=== PATIENT | male | born 1950 | race Caucasian/White ===

== ENCOUNTER 2017-07-01 08:00 | Inpatient (IN) | payer MEDICARE, BC ==
[~2017-07-01 08:00] MED LIST: ceFAZolin 2 GM in Premix Bag 1 BAG IV ONE
[2017-07-01] MEDS: Lactated Ringers 1,000 ML IV SCH ×2 (08:55→14:58)
--- NOTE | 2017-07-01 09:36 | PCM.PREANE ---
Preanesthetic Assessment - Anesthesia/Transfusion/Family Hx Anesthesia History: Prior Anesthesia Without Reaction Family History of Anesthesia Reaction: No Transfusion History: No Prior Transfusion(s) - Review of Systems General: No Symptoms Pulmonary: No Symptoms Cardiovascular: No Symptoms Gastrointestinal: No Symptoms Neurological: No Symptoms Other: Reports: None - Physical Assessment NPO Status Date: 06/30/17 NPO Status Time: 22:00 O2 Sat by Pulse Oximetry: 95 Respiratory Rate: 16 Vital Signs: Last Vital Signs Temp 37.3 C 07/01/17 08:50 Pulse 77 07/01/17 08:50 Resp 16 07/01/17 08:50 BP 150/72 H 07/01/17 08:50 Pulse Ox 95 07/01/17 08:50 Height: 1.75 m Weight: 105.233 kg ASA Class: 3 Mental Status: Alert & Oriented x3 Airway Class: Mallampati = 1 Dentition: Reports: Normal Dentition, Coleman(s) Lungs: Clear to Auscultation, Normal Respiratory Effort Cardiovascular: Regular Rate, Regular Rhythm - Lab Values: Laboratory Last Values WBC 9.14 K/uL (4.0-11.0) 07/01/17 09:14 RBC 4.91 M/uL (4.50-5.90) 07/01/17 09:14 Hgb 15.0 g/dL (13.0-17.0) 07/01/17 09:14 Hct 43.0 % (38.0-50.0) 07/01/17 09:14 MCV 87.6 fL (80.0-98.0) 07/01/17 09:14 MCH 30.5 pg (27.0-32.0) 07/01/17 09:14 MCHC 34.9 g/dL (31.0-37.0) 07/01/17 09:14 RDW Std Deviation 41.2 fl (28.0-62.0) 07/01/17 09:14 RDW Coeff of Mary Ann 13 % (11.0-15.0) 07/01/17 09:14 Plt Count 188 K/uL (150-400) 07/01/17 09:14 MPV 9.60 fL (7.40-12.00) 07/01/17 09:14 Neut % (Auto) 66.7 % (48.0-80.0) 07/01/17 09:14 Lymph % (Auto) 17.2 % (16.0-40.0) 07/01/17 09:14 [place] % (Auto) 9.1 % (0.0-15.0) 07/01/17 09:14 Eos % (Auto) 6.0 % (0.0-7.0) 07/01/17 09:14 Baso % (Auto) 1.0 % (0.0-1.5) 07/01/17 09:14 Neut # (Auto) 6.1 K/uL (1.4-5.7) H 07/01/17 09:14 Lymph # (Auto) 1.6 K/uL (0.6-2.4) 07/01/17 09:14 [place] # (Auto) 0.8 K/uL (0.0-0.8) 07/01/17 09:14 Eos # (Auto) 0.6 K/uL (0.0-0.7) 07/01/17 09:14 Baso # (Auto) 0.1 K/uL (0.0-0.1) 07/01/17 09:14 Nucleated RBC % 0.0 /100WBC 07/01/17 09:14 Nucleated RBCs # 0 K/uL 07/01/17 09:14 - Allergies Allergies/Adverse Reactions: Allergies Allergy/AdvReac Type Severity Reaction Status Date / Time No Known Allergies Allergy Verified 02/10/14 10:49 - Anesthesia Plan Pre-Op Medication Ordered: None - Acknowledgements Anesthesia Type Planned: General Anesthesia Pt an Appropriate Candidate for the Planned Anesthesia: Yes Alternatives and Risks of Anesthesia Discussed w Pt/Guardian: Yes Pt/Guardian Understands and Agrees with Anesthesia Plan: Yes Additional Comments: PMH: afib rate controlled, htn, RAD, GERD. HLD. PreAnesthesia Questionnaire Cardiovascular History: Reports: Afib, High Cholesterol, Hypertension Respiratory History: Reports: Asthma, Sleep Apnea Other Respiratory History: allergy induced asthma Gastrointestinal History: Reports: GERD Genitourinary History: Reports: BPH Endocrine/Metabolic History: Reports: Obesity/BMI 30+ Dermatologic History: Reports: Other (See Below) Other Dermatologic History: "small patchy spot on hoahaoism" - Past Surgical History Head Surgeries/Procedures: Reports: None GI Surgical History: Reports: Hernia, Abdominal Other GI Surgeries/Procedures: hx of anal fistula repair and hernia repair - SUBSTANCE USE Smoking Status *Q: Former Smoker Tobacco Use Within Last Twelve Months: No Second Hand Smoke Exposure: No Days Per Week of Alcohol Use: 0 Recreational Drug Use History: No - HOME MEDS Home Medications: Home Meds Diltiazem HCl [Diltiazem 24Hr ER] 240 mg PO DAILY 02/10/14 [History] Esomeprazole [NexIUM] 20 mg PO BID 02/10/14 [History] Multivitamin [Multi Vitamin Daily] 1 each PO DAILY 02/10/14 [History] Tamsulosin [Tamsulosin 24 Hr] 2 tab PO BEDTIME 02/10/14 [History] Valsartan [Diovan] 80 mg PO DAILY 02/10/14 [History] atorvaSTATin [Lipitor] 10 mg PO DAILY 02/10/14 [History] Albuterol Sulfate [Proair Hfa] 2 puff INH ASDIRECTED PRN 06/27/17 [History] Flecainide Acetate 100 mg PO BID 06/27/17 [History] Fluticasone Propionate [Flonase Allergy Relief] 2 spray NASBOTH DAILY 06/27/17 [ History] Rivaroxaban [Xarelto] 20 mg PO DAILY 06/27/17 [History] - CURRENT (IN HOUSE) MEDS Current Meds: Current Medications Lactated Ringer's (Ringers, Lactated) 1,000 mls @ 100 mls/hr IV ASDIRECTED [facility] Last Admin: 07/01/17 08:55 Dose: 100 mls/hr Discontinued Medications Cefazolin Sodium/Dextrose 2 gm (/ Premix) 50 mls @ 100 mls/hr IV ONCALL ONE Stop: 07/01/17 07:29
[2017-07-01 10:01] LABS: CHLORIDE,CL 106 mmol/L (98-110); SODIUM,NA 141 mmol/L (136-146)
[2017-07-01] MEDS ORDERED: Propofol 200 MG/20 ML SDV ONE ×4 (10:50→13:32)
[2017-07-01] MEDS ORDERED: fentaNYL 100 MCG/2 ML SDV ONE (10:50)
[2017-07-01] MEDS ORDERED: Midazolam 1 MG/ML 2 ML SDV ONE (10:50)
[2017-07-01] MEDS ORDERED: ePHEDrine 50 MG/ML SDV ONE (12:23)
--- NOTE | 2017-07-01 14:12 | PCM.POSTAN ---
POST ANESTHESIA ASSESSMENT - MENTAL STATUS Mental Status: Oriented - RESPIRATORY Respiratory Status: Respiratory Rate WNL, Airway Patent, O2 Saturation Stable - CARDIOVASCULAR CV Status: Pulse Rate WNL, Blood Pressure Stable - GASTROINTESTINAL GI Status: No Symptoms - PAIN Pain Score: 0 - POST OP HYDRATION Hydration Status: Adequate & Stable
[2017-07-01] MEDS ORDERED: ceFAZolin 1 GM in Premix Bag 1 BAG IV SCH (14:15)
[2017-07-01] MEDS: ceFAZolin 1 GM in Premix Bag 1 BAG IV SCH (20:16)
[2017-07-01] MEDS: Famotidine 20 MG Tab PO SCH (20:17)
--- NOTE | 2017-07-01 20:42 | OR ---
SURGEON: Adams Sorto M.D. DATE OF PROCEDURE: 07/01/2017 PREOPERATIVE DIAGNOSIS: Benign prostatic hypertrophy with obstruction. POSTOPERATIVE DIAGNOSIS: Benign prostatic hypertrophy with obstruction. OPERATION: TURP. DESCRIPTION: The patient was given spinal anesthesia, placed in dorsal lithotomy position, and prepped and draped in sterile drapes. The resectoscope was placed in the bladder that was [place]. Dissection was started with the median lobe which was resected first, then going both laterally and anteriorly. At the end of the resection, all prostatic chips were removed. Both ureteral orifices were intact. The area of the external sphincter was intact. A 22 3-way Grubbs catheter with 60 mL in the balloon was left in the bladder, connected to TUR drip. Estimated blood loss under 200 mL. The patient tolerated the procedure well and was moved to recovery room in good condition. AMARILIS / KIRT /[id number]
[2017-07-02] MEDS: Lactated Ringers 1,000 ML IV SCH (00:21)
[2017-07-02] MEDS: ceFAZolin 1 GM in Premix Bag 1 BAG IV SCH (03:35)
[2017-07-02 05:27] LABS: CHLORIDE,CL 105 mmol/L (98-110); SODIUM,NA 140 mmol/L (136-146)
[2017-07-02] MEDS: Famotidine 20 MG Tab PO SCH ×2 (09:59→20:14)
[2017-07-02] MEDS: Fluticasone Propionate Nasal Spray 16 GM Bottle NASBOTH SCH (10:00)
[2017-07-02] MEDS: Diltiazem 180 MG Cap.CD PO SCH (10:00)
[2017-07-02] MEDS ORDERED: Sodium Chloride 0.9% 10 ML Syringe FLUSH PRN (10:10)
[2017-07-02] MEDS ORDERED: Sodium Chloride 0.9% 2.5 ML Syringe FLUSH PRN (10:10)
--- NOTE | 2017-07-03 07:58 | PCM48HPAN ---
Post Anesthesia Note - EVALUATION WITHIN 48HRS OF ANESTHETIC Vital Signs in Normal Range: Yes Patient Participated in Evaluation: Yes Respiratory Function Stable: Yes Airway Patent: Yes Cardiovascular Function Stable: Yes Hydration Status Stable: Yes Pain Control Satisfactory: Yes Nausea and Vomiting Control Satisfactory: Yes Mental Status Recovered: Yes
[2017-07-03] MEDS: Fluticasone Propionate Nasal Spray 16 GM Bottle NASBOTH SCH (08:22)
[2017-07-03] MEDS: Famotidine 20 MG Tab PO SCH (08:23)
[2017-07-03] MEDS: Diltiazem 180 MG Cap.CD PO SCH (08:23)
[2017-07-03] MEDS ORDERED: Diltiazem 120 MG Cap.CD PO SCH (09:00)
[2017-07-03] MEDS ORDERED: Albuterol 8 GM Inhaler INH PRN (09:28)
[2017-07-03] MEDS ORDERED: Flecainide 100 MG Tab PO SCH (09:30)
[2017-07-03] MEDS ORDERED: Aspirin 81 MG Tab.Chew PO SCH (09:30)
[2017-07-03] MEDS ORDERED: Multivitamin Tab PO SCH (09:30)
[2017-07-03] MEDS ORDERED: atorvaSTATin 10 MG Tab PO SCH (09:30)
[2017-07-03] MEDS ORDERED: Omeprazole 20 MG Cap.CR PO SCH (09:30)
[2017-07-03] MEDS ORDERED: Fluticasone Propionate Nasal Spray 16 GM Bottle NASBOTH SCH (09:30)
--- NOTE | 2017-07-03 09:37 | PCM.SN ---
- Free Text/Narrative Note: 07/02 doing well . 07/03 doing well ,discharged
--- NOTE | 2017-07-04 04:52 | DISCH ---
DATE OF DISCHARGE: 07/03/2017 PRIMARY CARE PHYSICIAN: Kyung [facility] COURSE: A 66-year-old, he had a TURP done on the of this month, 2 days ago for BPH and obstructive urinary symptoms. Postoperatively, he did very well. The catheter was taken out on the 2nd postoperative day. He was able to void and is discharged on the 2nd postoperative day. Pathology of removed prostate tissue is still pending. He is instructed to go back on Xarelto in 3 days. He is to come back as needed. AMARILIS MORALEZ /[id number]
[2017-07-04] MEDS ORDERED: Diltiazem 120 MG Cap.CD PO SCH (09:00)
--- NOTE | 2017-11-26 11:31 | HP ---
DATE OF : 1950 PRIMARY CARE PHYSICIAN: Kyung Pal HISTORY OF PRESENT ILLNESS: He had his surgery done on 07/01/2017. The patient is 66 years old. He had obstructive urinary symptoms with at least one episode of urinary retention. His evaluation was done in the office, which included a prostate ultrasound that showed an adenoma that measured approximately 60 mL. PAST MEDICAL HISTORY: Includes 1. Dyslipidemia. 2. GERD. 3. Hypertension. 4. Palpitations. SURGICAL HISTORY: Includes 1. Repair of [id number]. 2. Hernia repair. FAMILY HISTORY: Hypertension and diabetes. REVIEW OF SYSTEMS: Essentially unremarkable, with the exception of his obstructive urinary symptoms. PHYSICAL EXAMINATION: GENERAL APPEARANCE: He is overweight. VITAL SIGNS: Blood pressure was 162/70. HEART: Shows atrial fibrillation. LUNGS: Clear. ABDOMEN: Obese, otherwise negative. GENITOURINARY: External genitalia were normal. RECTAL: Shows a benign enlarged prostate. DIAGNOSIS: Benign prostatic hypertrophy. PLAN: Transurethral resection of the prostate. AMARILIS MORALEZ /[id number]
== END 2017-07-03 10:50 | disposition home or self-care (01) | DRG 713 ==
LOC: MW.MS 08:30
PROVIDERS: ADMIT Urology; ATTEND Urology
PROC: 0VT08ZZ Resection of Prostate, Via Natural or Artificial Opening Endoscopic (ICD-10-PCS; principal; 2017-07-01)
DX: N40.1 Benign prostatic hyperplasia with lower urinary tract symptoms (principal); N13.8 Other obstructive and reflux uropathy; I48.91 Unspecified atrial fibrillation; I10 Essential (primary) hypertension; E78.00 Pure hypercholesterolemia, unspecified; Z79.899 Other long term (current) drug therapy
CPT/HCPCS: 00914; 36415; 80048; 80053; 85025; 88305; A9270-GY; C1769; J0690; J2250; J2704; J3010; J7120

== ENCOUNTER 2017-07-16 07:42 | Observation (INO) | payer MEDICARE, BC ==
--- NOTE | 2017-07-16 07:58 | EDM.PDOC ---
ED HPI GENERAL MEDICAL PROBLEM - General Chief Complaint: Genitourinary Problem Stated Complaint: UNABLE TO URINATE Time Seen by Provider: 07/16/17 07:48 Source of Information: Reports: Patient History Limitations: Reports: No Limitations - History of Present Illness INITIAL COMMENTS - FREE TEXT/NARRATIVE: History of present illness: []Patient is status post TURP on July 01 and this morning urinated a blood clot. He denies any pain in his abdomen or pain with urination, fevers, chills, nausea or vomiting. Patient started his overall toe 3 days after his TURP has not had a problem until today. Review of systems: As per history of present illness and below otherwise all systems reviewed and negative. Past medical history: As per history of present illness and as reviewed below otherwise noncontributory. Surgical history: As per history of present illness and as reviewed below otherwise noncontributory. Social history: No reported history of drug or alcohol abuse. Family history: As per history of present illness and as reviewed below otherwise noncontributory. Physical exam: General: Well developed, well nourished in NAD HEENT: Atraumatic, normocephalic, pupils reactive, negative for conjunctival pallor or scleral icterus, mucous membranes moist, throat clear, neck supple, nontender, trachea midline. Lungs: Clear to auscultation, breath sounds equal bilaterally, chest nontender. Heart: S1S2, regular, negative for clicks, rubs, or JVD. Abdomen: Soft, nondistended, nontender. Negative for masses or hepatosplenomegaly. Negative for costovertebral tenderness. Pelvis: Stable nontender. Genitourinary: Deferred. Rectal: Deferred. Extremities: Atraumatic, negative for cords or calf pain. Neurovascular unremarkable. Neuro: Awake, alert, oriented. Cranial nerves II through XII unremarkable. Cerebellum unremarkable. Motor and sensory unremarkable throughout. Exam nonfocal. Diagnostics: []Three-way Grubbs catheter was placed UA was sent showing no white cells but too numerous to count red cells. CBC shows H&H is stable Therapeutics: [] Impression: []Hematuria Plan: []Admit for continuous bladder irrigation Dr. Mora Definitive disposition and diagnosis as appropriate pending reevaluation and review of above. - Related Data Allergies Allergy/AdvReac Type Severity Reaction Status Date / Time No Known Allergies Allergy Verified 07/16/17 07:46 Home Meds: Home Meds Diltiazem HCl [Diltiazem 24Hr ER] 240 mg PO DAILY 02/10/14 [History] Esomeprazole [NexIUM] 20 mg PO BID 02/10/14 [History] Multivitamin [Multi Vitamin Daily] 1 each PO DAILY 02/10/14 [History] Valsartan [Diovan] 80 mg PO DAILY 02/10/14 [History] atorvaSTATin [Lipitor] 10 mg PO DAILY 02/10/14 [History] Albuterol Sulfate [Proair Hfa] 2 puff INH ASDIRECTED PRN 06/27/17 [History] Flecainide Acetate 100 mg PO BID 06/27/17 [History] Fluticasone Propionate [Flonase Allergy Relief] 2 spray NASBOTH DAILY 06/27/17 [ History] Rivaroxaban [Xarelto] 20 mg PO DAILY 06/27/17 [History] Doxycycline [Vibramycin] 100 mg PO BID 07/16/17 [History] Past Medical History Cardiovascular History: Reports: Afib, High Cholesterol, Hypertension Respiratory History: Reports: Asthma, Sleep Apnea Other Respiratory History: allergy induced asthma Gastrointestinal History: Reports: GERD Genitourinary History: Reports: BPH Psychiatric History: Reports: None Endocrine/Metabolic History: Reports: Obesity/BMI 30+ Dermatologic History: Reports: Other (See Below) Other Dermatologic History: "small patchy spot on adventism" - Past Surgical History Head Surgeries/Procedures: Reports: None GI Surgical History: Reports: Hernia, Abdominal Other GI Surgeries/Procedures: hx of anal fistula repair and hernia repair Male Surgical History: Reports: TURP-Transurethral Resection of Prostate Social & Family History - Tobacco Use Smoking Status *Q: Never Smoker Second Hand Smoke Exposure: No - Alcohol Use Days Per Week of Alcohol Use: 0 - Recreational Drug Use Recreational Drug Use: No ED ROS GENERAL - Review of Systems Review Of Systems: See Below (see history of present illness) ED EXAM, RENAL/ - Physical Exam Exam: See Below (See history of present illness) Course - Vital Signs Last Recorded V/S: Last Vital Signs Temp 36.9 C 07/16/17 11:26 Pulse 85 07/16/17 11:26 Resp 16 07/16/17 11:26 BP 142/78 H 07/16/17 11:26 Pulse Ox 94 L 07/16/17 11:26 - Orders/Labs/Meds Orders: Active Orders 24 hr Category Date Time Status Bladder Irrigation [RC] CONTINUOUS Care 07/16/17 08:39 Active Insert Grubbs Catheter [Insert Urinary Catheter] [OM.PC] Care 07/16/17 08:15 Ordered Q24H Urinary Catheter Assessment [RC] ASDIRECTED Care 07/16/17 08:09 Active Sodium Chloride 0.9% [Saline Flush] Med 07/16/17 08:37 Active 10 ml FLUSH ASDIRECTED PRN Sodium Chloride 0.9% [Saline Flush] Med 07/16/17 08:37 Active 2.5 ml FLUSH ASDIRECTED PRN Saline Lock Insert [OM.PC] Stat Oth 07/16/17 08:37 Ordered Medication Orders Albuterol (Ventolin Hfa) 8 gm INH ASDIRECTED PRN PRN Reason: Shortness of Breath Atorvastatin Calcium (Lipitor) 10 mg PO DAILY [facility] Diltiazem HCl (Cardizem Cd) 240 mg PO DAILY [facility] Flecainide Acetate (Tambocor) 100 mg PO BID [facility] Fluticasone Propionate (Flonase) 16 gm NASBOTH DAILY [facility] Multivitamins/Minerals/Vitamin C (Tab-A-Douglas) 1 tab PO DAILY [facility] Omeprazole (Omeprazole) 20 mg PO BIDAC REINALDO Sodium Chloride (Saline Flush) 10 ml FLUSH ASDIRECTED PRN PRN Reason: Keep Vein Open Last Admin: 07/16/17 09:50 Dose: 10 ml Sodium Chloride (Saline Flush) 2.5 ml FLUSH ASDIRECTED PRN PRN Reason: Keep Vein Open Last Admin: 07/16/17 09:50 Dose: 2.5 ml Valsartan (Diovan) 80 mg PO DAILY [facility]DO Labs: Laboratory Tests 07/16/17 07/16/17 07/16/17 Range/Units 08:54 08:54 08:54 WBC 14.62 H (4.0-11.0) K/uL RBC 5.07 (4.50-5.90) M/uL Hgb 15.5 (13.0-17.0) g/dL Hct 45.0 (38.0-50.0) % MCV 88.8 (80.0-98.0) fL MCH 30.6 (27.0-32.0) pg MCHC 34.4 (31.0-37.0) g/dL RDW Std Deviation 41.4 (28.0-62.0) fl RDW Coeff of Mary Ann 13 (11.0-15.0) % Plt Count 236 (150-400) K/uL MPV 9.40 (7.40-12.00) fL Add Manual Diff YES Neutrophils % (Manual) 76 (48.0-80.0) % Band Neutrophils % 7 % Lymphocytes % (Manual) 14 L (16.0-40.0) % Eosinophils % (Manual) 3 (0.0-7.0) % Nucleated RBC % 0.0 /100WBC Absolute Seg Neuts 11.1 H (1.4-5.7) Band Neutrophils # 1.0 Lymphocytes # (Manual) 2.0 (0.6-2.4) Eosinophils # (Manual) 0.4 (0.0-0.7) Nucleated RBCs # 0 K/uL Sodium 135 L (136-146) mmol/L Potassium 4.4 (3.5-5.1) mmol/L Chloride 100 (98-110) mmol/L Carbon Dioxide 27 (21-31) mmol/L BUN 16 (6.0-23.0) mg/dL Creatinine 0.9 (0.6-1.5) mg/dL Est Cr Clr Drug Dosing TNP Estimated GFR (MDRD) > 60.0 ml/min Glucose 117 H (60-110) mg/dL Calcium 9.2 (8.8-10.8) mg/dL Total Bilirubin 0.5 (0.1-1.5) mg/dL AST 19 (5-40) IU/L ALT 33 (8-54) IU/L Alkaline Phosphatase 105 (40-150) Total Protein 7.3 (6.0-8.0) g/dL Albumin 4.0 (3.4-4.8) g/dL Globulin 3.3 (2.0-3.5) g/dL Albumin/Globulin Ratio 1.2 L (1.3-2.8) Urine Color Urine Appearance Urine pH (5.0-8.0) Ur Specific [place] (1.001-1.035) Urine Protein (NEGATIVE) mg/dL Urine Glucose (UA) (NEGATIVE) mg/dL Urine Ketones (NEGATIVE) mg/dL Urine Occult Blood (NEGATIVE) Urine Nitrite (NEGATIVE) Urine Bilirubin (NEGATIVE) Urine Urobilinogen (<2.0) EU/dL Ur Leukocyte Esterase (NEGATIVE) Urine RBC (0-2/HPF) Urine WBC (0-5/HPF) Ur Epithelial Cells (NONE-FEW) Urine Bacteria (NEGATIVE) Blood Type A POSITIVE Antibody Screen NEGATIVE 07/16/17 Range/Units 08:54 WBC (4.0-11.0) K/uL RBC (4.50-5.90) M/uL Hgb (13.0-17.0) g/dL Hct (38.0-50.0) % MCV (80.0-98.0) fL MCH (27.0-32.0) pg MCHC (31.0-37.0) g/dL RDW Std Deviation (28.0-62.0) fl RDW Coeff of Mary Ann (11.0-15.0) % Plt Count (150-400) K/uL MPV (7.40-12.00) fL Add Manual Diff Neutrophils % (Manual) (48.0-80.0) % Band Neutrophils % % Lymphocytes % (Manual) (16.0-40.0) % Eosinophils % (Manual) (0.0-7.0) % Nucleated RBC % /100WBC Absolute Seg Neuts (1.4-5.7) Band Neutrophils # Lymphocytes # (Manual) (0.6-2.4) Eosinophils # (Manual) (0.0-0.7) Nucleated RBCs # K/uL Sodium (136-146) mmol/L Potassium (3.5-5.1) mmol/L Chloride (98-110) mmol/L Carbon Dioxide (21-31) mmol/L BUN (6.0-23.0) mg/dL Creatinine (0.6-1.5) mg/dL Est Cr Clr Drug Dosing Estimated GFR (MDRD) ml/min Glucose (60-110) mg/dL Calcium (8.8-10.8) mg/dL Total Bilirubin (0.1-1.5) mg/dL AST (5-40) IU/L ALT (8-54) IU/L Alkaline Phosphatase (40-150) Total Protein (6.0-8.0) g/dL Albumin (3.4-4.8) g/dL Globulin (2.0-3.5) g/dL Albumin/Globulin Ratio (1.3-2.8) Urine Color RED Urine Appearance CLOUDY Urine pH 8.0 (5.0-8.0) Ur Specific [place] 1.020 (1.001-1.035) Urine Protein >=300 (NEGATIVE) mg/dL Urine Glucose (UA) NEGATIVE (NEGATIVE) mg/dL Urine Ketones NEGATIVE (NEGATIVE) mg/dL Urine Occult Blood LARGE H (NEGATIVE) Urine Nitrite NEGATIVE (NEGATIVE) Urine Bilirubin NEGATIVE (NEGATIVE) Urine Urobilinogen 0.2 (<2.0) EU/dL Ur Leukocyte Esterase SMALL (NEGATIVE) Urine RBC TOO NUMBEROUS TO CT (0-2/HPF) Urine WBC 0-1 (0-5/HPF) Ur Epithelial Cells RARE (NONE-FEW) Urine Bacteria RARE (NEGATIVE) Blood Type Antibody Screen Meds: Medications Generic Name Dose Route Start Last Admin Trade Name Freq PRN Reason Stop Dose Admin Albuterol 8 gm 07/16/17 10:32 Ventolin Hfa INH ASDIRECTED PRN Shortness of Breath Atorvastatin Calcium 10 mg 07/17/17 09:00 Lipitor PO DAILY REINALDO Diltiazem HCl 240 mg 07/17/17 09:00 Cardizem Cd PO DAILY REINALDO Flecainide Acetate 100 mg 07/16/17 21:00 Tambocor PO BID REINALDO Fluticasone Propionate 16 gm 07/17/17 09:00 Flonase NASBOTH DAILY [facility] Multivitamins/Minerals/Vitamin C 1 tab 07/17/17 09:00 Tab-A-Douglas PO DAILY RE[facility]DO Omeprazole 20 mg 07/16/17 17:00 Omeprazole PO BIDAC REINALDO Sodium Chloride 10 ml 07/16/17 08:37 07/16/17 09:50 Saline Flush FLUSH 10 ml ASDIRECTED PRN Administration Keep Vein Open Sodium Chloride 2.5 ml 07/16/17 08:37 07/16/17 09:50 Saline Flush FLUSH 2.5 ml ASDIRECTED PRN Administration Keep Vein Open Valsartan 80 mg 07/17/17 09:00 Diovan PO DAILY REINALDO Departure - Departure Time of Disposition: 11:10 Disposition: Admitted As Inpatient 66 Condition: Good Clinical Impression: Hematuria Qualifiers: Hematuria type: gross Qualified Code(s): R31.0 - Gross hematuria - Discharge Information - My Orders Last 24 Hours: My Active Orders 07/16/17 08:09 Urinary Catheter Assessment [RC] ASDIRECTED 07/16/17 08:15 Insert Grubbs Catheter [Insert Urinary Catheter] [OM.PC] Q24H 07/16/17 08:37 Sodium Chloride 0.9% [Saline Flush] 10 ml FLUSH ASDIRECTED PRN Sodium Chloride 0.9% [Saline Flush] 2.5 ml FLUSH ASDIRECTED PRN Saline Lock Insert [OM.PC] Stat 07/16/17 08:39 Bladder Irrigation [RC] CONTINUOUS - Assessment/Plan Last 24 Hours: My Active Orders 07/16/17 08:09 Urinary Catheter Assessment [RC] ASDIRECTED 07/16/17 08:15 Insert Grubbs Catheter [Insert Urinary Catheter] [OM.PC] Q24H 07/16/17 08:37 Sodium Chloride 0.9% [Saline Flush] 10 ml FLUSH ASDIRECTED PRN Sodium Chloride 0.9% [Saline Flush] 2.5 ml FLUSH ASDIRECTED PRN Saline Lock Insert [OM.PC] Stat 07/16/17 08:39 Bladder Irrigation [RC] CONTINUOUS
[2017-07-16] MEDS ORDERED: Sodium Chloride 0.9% 2.5 ML Syringe FLUSH PRN (08:37)
[2017-07-16] MEDS ORDERED: Sodium Chloride 0.9% 10 ML Syringe FLUSH PRN (08:37)
[2017-07-16 09:24] LABS: CHLORIDE,CL 100 mmol/L (98-110); SODIUM,NA 135 mmol/L (136-146)
[2017-07-16] MEDS ORDERED: Albuterol 8 GM Inhaler INH PRN (10:32)
[2017-07-16] MEDS: Omeprazole 20 MG Cap.CR PO SCH (17:43)
[2017-07-16] MEDS: Flecainide 100 MG Tab PO SCH (20:53)
[2017-07-16] MEDS ORDERED: atorvaSTATin 10 MG Tab PO SCH (21:00)
[2017-07-17] MEDS: Omeprazole 20 MG Cap.CR PO SCH (06:42)
[2017-07-17] MEDS: Flecainide 100 MG Tab PO SCH (08:14)
[2017-07-17] MEDS ORDERED: atorvaSTATin 10 MG Tab PO SCH (09:00)
[2017-07-17] MEDS ORDERED: Fluticasone Propionate Nasal Spray 16 GM Bottle NASBOTH SCH (09:00)
[2017-07-17] MEDS ORDERED: Multivitamin Tab PO SCH (09:00)
[2017-07-17] MEDS ORDERED: Diltiazem 120 MG Cap.CD PO SCH (09:00)
--- NOTE | 2017-07-17 15:16 | DISCH ---
DATE OF DISCHARGE: 07/17/2017 PRIMARY CARE PHYSICIAN: Kyung Pal Scott was admitted to the hospital on 07/16/2017 with post TURP bleeding. A catheter was placed in his bladder. The continuous bladder irrigation was started and was kept for the better part of a day. The irrigation was discontinued. The color of the urine remained reasonably clear. He is discharged with a Grubbs catheter in and he was instructed to take the Grubbs catheter out in a couple days. He is to take baby aspirin 1 a day for a week. He is to restart his Xarelto about a week from now. He is to come back and see me as needed. AMARILIS MORALEZ /[id number] MTDD
== END 2017-07-17 15:20 | disposition home or self-care (01) ==
LOC: MW.ED 07:42 → MW.MS 10:18 → UNDOADMOB 10:58
PROVIDERS: ADMIT Urology; ATTEND Urology
DX: N99.820 Postprocedural hemorrhage of a genitourinary system organ or structure following a genitourinary system procedure (principal)
CPT/HCPCS: 36415; 80053; 81001; 85025; 86850; 86900; 86901; 87086; 99283; A9270; G0378; 99284

== ENCOUNTER 2017-07-19 09:39 | Emergency (ER) | payer MEDICARE, BC ==
[2017-07-19] MEDS ORDERED: Sodium Chloride 0.9% 1,000 ML IV ONE (10:40)
--- NOTE | 2017-07-19 10:41 | EDM.PDOC ---
ED HPI GENERAL MEDICAL PROBLEM - General Chief Complaint: Genitourinary Problem Stated Complaint: BLOODY URINE Time Seen by Provider: 07/19/17 10:10 Source of Information: Reports: Patient, Family History Limitations: Reports: No Limitations - History of Present Illness INITIAL COMMENTS - FREE TEXT/NARRATIVE: History of present illness: [66-year-old male presenting with complaints of blood in urine. Patient has a recent history of a TURP that he was discharged after 2 days and subsequent return with blood in his urine vomiting. Patient indicates he's concerned that this is not resolving and has come back for reevaluation today.] Review of systems: As per history of present illness and below otherwise all systems reviewed and negative. Past medical history: As per history of present illness and as reviewed below otherwise noncontributory. Surgical history: As per history of present illness and as reviewed below otherwise noncontributory. Social history: No reported history of drug or alcohol abuse. Family history: As per history of present illness and as reviewed below otherwise noncontributory. Physical exam: HEENT: Atraumatic, normocephalic, pupils reactive, negative for conjunctival pallor or scleral icterus, mucous membranes moist, throat clear, neck supple, nontender, trachea midline. Lungs: Clear to auscultation, breath sounds equal bilaterally, chest nontender. Heart: S1S2, regular, negative for clicks, rubs, or JVD. Abdomen: Soft, nondistended, nontender. Negative for masses or hepatosplenomegaly. Negative for costovertebral tenderness. Pelvis: Stable nontender. Genitourinary: Deferred. Rectal: Deferred. Extremities: Atraumatic, negative for cords or calf pain. Neurovascular unremarkable. Neuro: Awake, alert, oriented. Cranial nerves II through XII unremarkable. Cerebellum unremarkable. Motor and sensory unremarkable throughout. Exam nonfocal. Patient was given IV normal saline here and was able to void and was able to excrete greater than 90% of what was visualized on the bladder scan. UA sent no signs of infection signs of blood as would be expected. Discussed with patient the need for increased oral hydration and the minimum numbers that would keep her bleeding and blood clots under control. Diagnostics: [Bladder scan] Therapeutics: [1 L normal saline] Impression: [#1 dehydration] Plan: [Increase hydration and natural bladder irrigation] Definitive disposition and diagnosis as appropriate pending reevaluation and review of above. - Related Data Allergies Allergy/AdvReac Type Severity Reaction Status Date / Time No Known Allergies Allergy Verified 07/19/17 10:01 Home Meds: Home Meds Diltiazem HCl [Diltiazem 24Hr ER] 240 mg PO DAILY 02/10/14 [History] Esomeprazole [NexIUM] 20 mg PO BID 02/10/14 [History] Multivitamin [Multi Vitamin Daily] 1 each PO DAILY 02/10/14 [History] Valsartan [Diovan] 80 mg PO DAILY 02/10/14 [History] atorvaSTATin [Lipitor] 10 mg PO BEDTIME 02/10/14 [History] Albuterol Sulfate [Proair Hfa] 2 puff INH ASDIRECTED PRN 06/27/17 [History] Flecainide Acetate 100 mg PO BID 06/27/17 [History] Fluticasone Propionate [Flonase Allergy Relief] 2 spray NASBOTH DAILY 06/27/17 [ History] Rivaroxaban [Xarelto] 20 mg PO BEDTIME 06/27/17 [History] Doxycycline [Vibramycin] 100 mg PO BID 07/16/17 [History] Past Medical History HEENT History: Reports: Sinusitis Cardiovascular History: Reports: Afib, High Cholesterol, Hypertension Respiratory History: Reports: Asthma, Sleep Apnea Other Respiratory History: allergy induced asthma Gastrointestinal History: Reports: GERD Genitourinary History: Reports: BPH Psychiatric History: Reports: None Endocrine/Metabolic History: Reports: Obesity/BMI 30+ Hematologic History: Reports: None Immunologic History: Reports: None Oncologic (Cancer) History: Reports: None Dermatologic History: Reports: Other (See Below) Other Dermatologic History: "small patchy spot on yarsani" - Infectious Disease History Infectious Disease History: Reports: Chicken Pox, Measles - Past Surgical History Head Surgeries/Procedures: Reports: None HEENT Surgical History: Reports: None GI Surgical History: Reports: Hernia, Abdominal Other GI Surgeries/Procedures: hx of anal fistula repair and hernia repair Male Surgical History: Reports: TURP-Transurethral Resection of Prostate Social & Family History - Family History Cardiac: Reports: Heart Failure Neurological: Reports: CVA Endocrine/Metabolic: Reports: Diabetes, type II Oncologic: Reports: Liver - Tobacco Use Smoking Status *Q: Never Smoker Second Hand Smoke Exposure: No - Caffeine Use Caffeine Use: Reports: Coffee - Alcohol Use Days Per Week of Alcohol Use: 0 - Recreational Drug Use Recreational Drug Use: No ED ROS GENERAL - Review of Systems Review Of Systems: See Below (See history of present illness) ED EXAM, GENERAL - Physical Exam Exam: See Below (See history of present illness) Course - Vital Signs Last Recorded V/S: Last Vital Signs Temp 36.7 C 07/19/17 10:02 Pulse 91 07/19/17 10:02 Resp 16 07/19/17 10:02 BP 170/72 H 07/19/17 10:02 Pulse Ox 95 07/19/17 10:02 - Orders/Labs/Meds Orders: Active Orders 24 hr Category Date Time Status Sodium Chloride 0.9% [Normal Saline] 1,000 ml Med 07/19/17 10:40 Active IV STAT Medication Orders Sodium Chloride (Normal Saline) 1,000 mls @ 999 mls/hr IV STAT ONE Stop: 07/19/17 11:40 Last Admin: 07/19/17 11:06 Dose: 999 mls/hr Labs: Laboratory Tests 07/19/17 Range/Units 10:07 Urine Color RED Urine Appearance SLT CLOUDY Urine pH 6.0 (5.0-8.0) Ur Specific [place] <= 1.005 (1.001-1.035) Urine Protein TRACE (NEGATIVE) mg/dL Urine Glucose (UA) NEGATIVE (NEGATIVE) mg/dL Urine Ketones NEGATIVE (NEGATIVE) mg/dL Urine Occult Blood LARGE H (NEGATIVE) Urine Nitrite NEGATIVE (NEGATIVE) Urine Bilirubin NEGATIVE (NEGATIVE) Urine Urobilinogen 0.2 (<2.0) EU/dL Ur Leukocyte Esterase MODERATE (NEGATIVE) Urine RBC 125-135 (0-2/HPF) Urine WBC 10-12 (0-5/HPF) Ur Epithelial Cells RARE (NONE-FEW) Urine Bacteria FEW (NEGATIVE) Meds: Medications Generic Name Dose Route Start Last Admin Trade Name Freq PRN Reason Stop Dose Admin Sodium Chloride 1,000 mls @ 999 mls/hr 07/19/17 10:40 07/19/17 11:06 Normal Saline IV 07/19/17 11:40 999 mls/hr STAT ONE Administration Departure - Departure Time of Disposition: 11:38 Disposition: Home, Self-Care 01 Condition: Good Clinical Impression: Hematuria Qualifiers: Hematuria type: gross Qualified Code(s): R31.0 - Gross hematuria - Discharge Information Referrals: PCP,Unknown [Primary Care Provider] - Forms: ED Department Discharge Additional Instructions: The following information is given to patients seen in the emergency department who are being discharged to home. This information is to outline your options for follow-up care. We provide all patients seen in our emergency department with a follow-up referral. The need for follow-up, as well as the timing and circumstances, are variable depending upon the specifics of your emergency department visit. If you don't have a primary care physician on staff, we will provide you with a referral. We always advise you to contact your personal physician following an emergency department visit to inform them of the circumstance of the visit and for follow-up with them and/or the need for any referrals to a consulting specialist. The emergency department will also refer you to a specialist when appropriate. This referral assures that you have the opportunity for follow-up care with a specialist. All of these measure are taken in an effort to provide you with optimal care, which includes your follow-up. Under all circumstances we always encourage you to contact your private physician who remains a resource for coordinating your care. When calling for follow-up care, please make the office aware that this follow-up is from your recent emergency room visit. If for any reason you are refused follow-up, please contact the [facility] Emergency Department at and asked to speak to the emergency department charge nurse. Drink at least 100 ounces of water a day if you drink caffeinated beverages please replace them to ounces for every ounce of caffeinated beverage(coffee) Follow-up with PCP and/or urologist in 2-3 days Return to ED as needed as discussed - My Orders Last 24 Hours: My Active Orders 07/19/17 10:40 Sodium Chloride 0.9% [Normal Saline] 1,000 ml IV STAT - Assessment/Plan Last 24 Hours: My Active Orders 07/19/17 10:40 Sodium Chloride 0.9% [Normal Saline] 1,000 ml IV STAT
== END 2017-07-19 11:55 | disposition home or self-care (01) ==
LOC: MW.ED 09:39
DX: E86.0 Dehydration (principal); R31.0 Gross hematuria; I10 Essential (primary) hypertension; Z79.899 Other long term (current) drug therapy
CPT/HCPCS: 81001; 96360; 99283; J7040

== ENCOUNTER 2020-01-27 07:38 | Day surgery (SDC) | payer MEDICARE, BC ==
[~2020-01-27 07:38] MED LIST changes: +Lactated Ringers 1,000 ML IV SCH; +Sodium Chloride 0.9% 10 ML SDV IV PRN; +Sodium Chloride 0.9% 10 ML Syringe FLUSH PRN; +Sodium Chloride 0.9% 2.5 ML Syringe FLUSH PRN
--- NOTE | 2020-01-27 08:22 | PCM.PREANE ---
Preanesthetic Assessment - Anesthesia/Transfusion/Family Hx Anesthesia History: Prior Anesthesia Without Reaction Family History of Anesthesia Reaction: No Transfusion History: No Prior Transfusion(s) - Review of Systems General: No Symptoms Pulmonary: No Symptoms Cardiovascular: No Symptoms Gastrointestinal: No Symptoms Neurological: No Symptoms Other: Reports: None - Physical Assessment NPO Status Date: 01/26/20 Height: 5 ft 9 in Weight: 103.419 kg ASA Class: 2 Mental Status: Alert & Oriented x3 Airway Class: Mallampati = 2 Dentition: Reports: Normal Dentition ROM/Head Extension: Full Lungs: Clear to Auscultation, Normal Respiratory Effort Cardiovascular: Regular Rate, Regular Rhythm - Allergies Allergies/Adverse Reactions: Allergies Allergy/AdvReac Type Severity Reaction Status Date / Time No Known Allergies Allergy Verified 01/27/20 08:16 - Blood Blood Available: No - Anesthesia Plan Pre-Op Medication Ordered: None - Acknowledgements Anesthesia Type Planned: Spinal Pt an Appropriate Candidate for the Planned Anesthesia: Yes Alternatives and Risks of Anesthesia Discussed w Pt/Guardian: Yes Pt/Guardian Understands and Agrees with Anesthesia Plan: Yes Additional Comments: PMH:parox afib. htn, conrado, rad, on flecanide but QTc of 442 PLAN: spinal PreAnesthesia Questionnaire HEENT History: Reports: Other (See Below) Other HEENT History: wears glasses Cardiovascular History: Reports: Afib, High Cholesterol, Hypertension Respiratory History: Reports: Asthma, Sleep Apnea Other Respiratory History: allergy induced asthma, uses CPAP Gastrointestinal History: Reports: Colon Polyp, GERD Genitourinary History: Reports: BPH Musculoskeletal History: Reports: None Neurological History: Reports: Concussion Psychiatric History: Reports: None Endocrine/Metabolic History: Reports: Obesity/BMI 30+ Hematologic History: Reports: Anticoagulation Therapy Immunologic History: Reports: None Oncologic (Cancer) History: Reports: None Dermatologic History: Reports: None - Infectious Disease History Infectious Disease History: Reports: Chicken Pox, Measles - Past Surgical History Head Surgeries/Procedures: Reports: None HEENT Surgical History: Reports: None Cardiovascular Surgical History: Reports: None Respiratory Surgical History: Reports: None GI Surgical History: Reports: Colonoscopy, Hernia, Abdominal Other GI Surgeries/Procedures: hx of anal fistula repair and hernia repair Male Surgical History: Reports: TURP-Transurethral Resection of Prostate Endocrine Surgical History: Reports: None Neurological Surgical History: Reports: None Musculoskeletal Surgical History: Reports: None Oncologic Surgical History: Reports: None Dermatological Surgical History: Reports: Skin Biopsy - SUBSTANCE USE Smoking Status *Q: Former Smoker Tobacco Use Within Last Twelve Months: No - HOME MEDS Home Medications: Home Meds Diltiazem HCl [Diltiazem 24Hr ER] 240 mg PO DAILY 02/10/14 [History] Esomeprazole [NexIUM] 20 mg PO BID 02/10/14 [History] Multivitamin [Multi Vitamin Daily] 1 each PO DAILY 02/10/14 [History] atorvaSTATin [Lipitor] 10 mg PO BEDTIME 02/10/14 [History] Albuterol Sulfate [Proair Hfa] 2 puff INH ASDIRECTED PRN 06/27/17 [History] Flecainide Acetate 100 mg PO BID 06/27/17 [History] Fluticasone Propionate [Flonase Allergy Relief] 1 spray NASBOTH DAILY PRN [History] Apixaban [Eliquis] 5 mg PO BID 01/25/20 [History] Losartan [Cozaar] 100 mg PO DAILY 01/25/20 [History] - CURRENT (IN HOUSE) MEDS Current Meds: Current Medications Lactated Ringer's (Ringers, Lactated) 1,000 mls @ 100 mls/hr IV ASDIRECTED REINALDO Sodium Chloride (Saline Flush) 10 ml FLUSH ASDIRECTED PRN PRN Reason: Keep Vein Open Sodium Chloride (Saline Flush) 2.5 ml FLUSH ASDIRECTED PRN PRN Reason: Keep Vein Open Sodium Chloride (Normal Saline) 10 ml IV ASDIRECTED PRN PRN Reason: IV Use Discontinued Medications Cefazolin Sodium/Dextrose 2 gm (/ Premix) 50 mls @ 100 mls/hr IV ONCALL ONE Stop: 01/27/20 00:30
[2020-01-27] MEDS ORDERED: fentaNYL 100 MCG/2 ML SDV ONE (08:35)
[2020-01-27] MEDS ORDERED: Propofol 200 MG/20 ML SDV ONE (08:35)
[2020-01-27] MEDS ORDERED: Ondansetron 4 MG/2 ML SDV ONE (08:35)
[2020-01-27] MEDS ORDERED: Midazolam 1 MG/ML 2 ML SDV ONE (08:36)
[2020-01-27] MEDS ORDERED: Sodium Chloride 0.9% 20 ML ONE (09:02)
[2020-01-27] MEDS ORDERED: ceFAZolin 1 GM Vial ONE (09:02)
[2020-01-27] MEDS ORDERED: Non-Formulary Medication 1 Each (Fluticasone Propionate [Flonase Allergy Relief] 1 SPRAY) NASBOTH PRN (10:25)
[2020-01-27] MEDS ORDERED: Albuterol 6.7 GM Inhaler INH PRN (10:25)
--- NOTE | 2020-01-27 12:15 | PCM.POSTAN ---
POST ANESTHESIA ASSESSMENT - MENTAL STATUS Mental Status: Alert, Oriented - VITAL SIGNS Vital Signs: Last Vital Signs Temp 97.0 F 01/27/20 10:25 Pulse 52 L 01/27/20 10:40 Resp 11 L 01/27/20 10:40 BP 109/58 L 01/27/20 10:40 Pulse Ox 95 01/27/20 10:40 - RESPIRATORY Respiratory Status: Respiratory Rate WNL, Airway Patent, O2 Saturation Stable - CARDIOVASCULAR CV Status: Pulse Rate WNL, Blood Pressure Stable - GASTROINTESTINAL GI Status: No Symptoms - POST OP HYDRATION Hydration Status: Adequate & Stable
--- NOTE | 2020-01-27 12:15 | PCM48HPAN ---
Post Anesthesia Note - EVALUATION WITHIN 48HRS OF ANESTHETIC Vital Signs in Normal Range: Yes Patient Participated in Evaluation: Yes Respiratory Function Stable: Yes Airway Patent: Yes Cardiovascular Function Stable: Yes Hydration Status Stable: Yes Pain Control Satisfactory: Yes Nausea and Vomiting Control Satisfactory: Yes Mental Status Recovered: Yes Vital Signs: Last Vital Signs Temp 97.0 F 01/27/20 10:25 Pulse 52 L 01/27/20 10:40 Resp 11 L 01/27/20 10:40 BP 109/58 L 01/27/20 10:40 Pulse Ox 95 01/27/20 10:40
--- NOTE | 2020-01-27 16:35 | OR ---
SURGEON: Adams Sorto M.D. DATE OF PROCEDURE: 01/27/2020 PREOPERATIVE DIAGNOSIS: Papillary bladder tumor, left wall of the bladder, medium. POSTOPERATIVE DIAGNOSIS: Papillary bladder tumor, left wall of the bladder, medium. OPERATION: Transurethral resection of bladder tumor. DESCRIPTION OF PROCEDURE: The patient was given general anesthesia. He was in the dorsal lithotomy position, prepped and draped in sterile drapes. A 26-[place]namese continuous flow resectoscope was introduced in the bladder. After a small piece of neck of the bladder that had been scarred from previous TURP, it was resected on the left side to help with the access into the bladder. The tumor was then resected in its entirety. The specimen was deep enough to contain muscle. The tumor was entirely papillary. Any bleeding points were fulgurated. The specimen was submitted. The patient was moved to recovery room in stable condition. AMARILIS / KIRT /[id number]
[2020-01-27] MEDS ORDERED: Flecainide 100 MG Tab PO SCH (21:00)
[2020-01-27] MEDS ORDERED: atorvaSTATin 10 MG Tab PO SCH (21:00)
[2020-01-27] MEDS ORDERED: Non-Formulary Medication 1 Each (Esomeprazole [Nexium] 20 MG) PO SCH (21:00)
[2020-01-27] MEDS ORDERED: Apixaban 5 MG Tab PO SCH (21:00)
[2020-01-28] MEDS ORDERED: Multivitamin Tab PO SCH (09:00)
[2020-01-28] MEDS ORDERED: Non-Formulary Medication 1 Each (Losartan 100 MG) PO SCH (09:00)
[2020-01-28] MEDS ORDERED: DILTIAZEM HCL 240 MG PO SCH (09:00)
== END 2020-01-27 12:20 | disposition home or self-care (01) ==
LOC: MW.SDS 07:38
PROVIDERS: ATTEND Urology
DX: C67.9 Malignant neoplasm of bladder, unspecified (principal); I10 Essential (primary) hypertension; E78.00 Pure hypercholesterolemia, unspecified; E66.9 Obesity, unspecified; J45.909 Unspecified asthma, uncomplicated; Z87.891 Personal history of nicotine dependence; Z79.899 Other long term (current) drug therapy; Z68.34 Body mass index [BMI] 34.0-34.9, adult
CPT/HCPCS: 52235; 88305; 93005; J0690; J2250; J2405; J2704; J3010; 00912